=== PATIENT | female | born 1975 | race Caucasian/White ===

== ENCOUNTER 2019-06-20 10:29 | Outpatient (CLI) | payer OTHER, SELFPAY ==
--- NOTE | ~2019-06-20 | CT_ITS ---
EXAMINATION: CT abdomen pelvis w con DATE: 06/20/2019 11:24 INDICATION: Right lower quadrant abdominal pain TECHNIQUE: Computed tomography (CT) of the abdomen and pelvis was performed with 100 cc Omnipaque 350 intravenous contrast. Automated exposure control and iterative reconstruction technique were employe d. Exam dose: 1304.54 mGy-cm total exam DLP. COMPARISON: None. FINDINGS: The lung bases are clear. Hepatic steatosis. There is a very small hepatic cyst. Normal splenic size. No pancreatic mass lesion or calcification or ductal dilatation. The gallbladder is absent. No bile duct dilatation. Normal morphology of the adrenal glands. No renal mass lesion or urinary tract calculus or hydroureteronephrosis. The urinary bladder is unrem arkable. Normal caliber of the abdominal aorta. No intraperitoneal or retroperitoneal or pelvic mass lesion or adenopathy or ascites. There are some nonspecific mildly dilated loops of jejunum with scattered small bowel air-fluid level s. Normal elongated appendix. No intraperitoneal free air. Prominent bilateral osteitis condensans ilii. No suspicious osteolytic or osteoblastic lesions. IMPRESSION: Nonspecific mildly dilated jejunal loops with scattered small bowel air-fluid levels; no bowel obstruction or intraperitoneal free air Normal appendix Reviewed, dictated and finalized at [facility]. Reviewed, dictated and finalized at [facility]. [facility] IMPRESSION: Nonspecific mildly dilated jejunal loops with scattered small kaitlin l air-fluid levels; no bowel obstruction or intraperitoneal free air Normal appendix
[2019-06-20 11:36] LABS: Basophils Percent Auto 0.5 % (0.2-1.2); Eosinophils Absolute Auto 0.3 K/mm3 (0-0.3); Eosinophils Percent Auto 4.2 % (0-4.4); Hematocrit 37.4 % (37.0-47.0); Hemoglobin 12.1 g/dL (12.0-15.0); Immature Granulocyte Absolute 0.01 K/mm3 (0.00-0.031); Immature Granulocyte Percent A 0.2 % (0-0.5); Lymphocytes Absolute Auto 1.63 K/mm3 (0.9-3.2); Lymphocytes Percent Auto 24.7 % (18.3-44.2); Mean Corpuscular HGB Conc 32.4 g/dl (32-36); Mean Corpuscular Hemoglobin 32.8 pg (26-34); Mean Corpuscular Volume 101.4 fl (80-100); Mean Platelet Volume 11.3 fl (7.4-10.4); Monocytes Absolute Auto 0.5 K/mm3 (0.1-0.6); Monocytes Percent Auto 6.8 % (2.6-8.5); Neutrophils Absolute Auto 4.2 K/mm3 (1.3-6.7); Neutrophils Percent Auto 63.6 % (45.5-73.1); Platelet Count Result 189 k/mm3 (150-375); Red Blood Count 3.69 M/mm3 (4.2-5.4); White Blood Count 6.6 K/mm3 (4.5-10.0)
[2019-06-20 11:52] LABS: Alanine Aminotransferase 22 U/L (4-35); Albumin Level 3.9 g/dL (3.5-5.1); Alkaline Phosphatase 70 U/L (38-126); Aspartate Amino Transferase 26 U/L (14-36); Bilirubin,Total 0.3 mg/dL (0.2-1.3); Blood Urea Nitrogen 10 mg/dL (7-17); Calcium 8.6 mg/dL (8.4-10.2); Carbon Dioxide 24 mmol/L (22-30); Chloride 98 mmol/L (98-107); Estimated Glomerular Filt Rate > 60; Glucose 92 mg/dL (65-105); Sodium 133 mmol/L (137-145)
[2019-06-20 14:46] LABS: IFOB Positive Control Positive; Immunochemical Fecal Occult Bl Negative (N)
== END 2019-06-20 10:30 | disposition home or self-care (01) ==
PROVIDERS: PCP Physician Assistant; Visit Provider Physician Assistant
DX: R10.31 Right lower quadrant pain (principal); R19.7 Diarrhea, unspecified
CPT/HCPCS: 36415; 74177; 80053; 82274; 85025; 87015; 87045; 87046; 87177; 87209; 87269; 87272; 87324; 87427; 89055; Q9967

== ENCOUNTER 2019-07-25 10:40 | Emergency (ER) | payer OTHER, SELFPAY ==
--- NOTE | 2019-07-25 10:44 | ED.GENADULT ---
HPI - General Adult General Chief complaint: Skin/Abscess/Foreign Body Stated complaint: Pos shingles Time Seen by Provider: 07/25/19 10:44 Source: patient Mode of arrival: ambulatory Limitations: no limitations History of Present Illness HPI narrative: 44-year-old female patient presents to the [facility] with complaints of rash on the back of the neck that wraps around to the right side of the neck. Patient states that the rash started about Wednesday night into Wednesday morning. Patient states that the rash is a burning pain. Patient states she was having pain to the neck before she noticed the rash. Patient has had shingles before the past. Patient states she has not been sick recently with no fevers but states that she has been very stressed out recently. Related Data Home Medications Medication Instructions Recorded Confirmed dextroamphetamine-amphetamine PO 07/25/19 [Adderall XR] escitalopram oxalate mg 07/25/19 estradiol mg 07/25/19 Allergies Allergy/AdvReac Type Severity Reaction Status Date / Time latex Allergy Intermediate Rash Verified 10/26/18 07:17 hydrocodone AdvReac Unknown Hives / Verified 10/26/18 07:17 Red Face Penicillins AdvReac Unknown NAUSEA/VOMI Verified 10/26/18 07:17 TING onion AdvReac Nausea and Verified 07/25/19 10:57 Vomiting sulfamethoxazole AdvReac Nausea and Verified 07/25/19 10:57 [From Bactrim] Vomiting trimethoprim [From Bactrim] AdvReac Nausea and Verified 07/25/19 10:57 Vomiting Review of Systems Review of Systems: Narrative: CONSTITUTIONAL: Denies fever, chills, or sweats. EYES: Denies visual changes, redness, or discharge. ENT: Denies rhinorrhea, congestion, sore throat, or otalgia. CARDIOVASCULAR: Denies chest pain, palpitations, or edema. RESPIRATORY: Denies cough or dyspnea. GASTROINTESTINAL: Denies abdominal pain, nausea, vomiting, or diarrhea. GENITOURINARY: Denies dysuria or hematuria. SKIN: Positive painful rash to the back of the neck that extends to the right side of the neck x1 to 2 days. MUSCULOSKELETAL: Denies back pain, joint pain, or myalgia. NEUROLOGIC: Denies headache, numbness, or weakness. PSYCHIATRIC: Denies anxiety or depression. [facility] Family History Family History Father Patient's father is in good health Social History Social History Smoking status: Light tobacco smoker Alcohol intake: current Comments At the time of my signature I agree with nursing past medical history, surgical, social, and family history. There is no relevant family history pertinent to the presenting complaint. Exam Narrative: Exam Narrative: GENERAL: Well-appearing, well-nourished, and in no acute distress. HEAD: Normocephalic, atraumatic. EYES: PERRLA and EOMI. ENT: Nares clear, no rhinorrhea or epistaxis. Mucous membranes moist. NECK: Supple. No lymphadenopathy CHEST: Clear to auscultation. No respiratory distress. HEART: Regular rate and rhythm. No murmur heard. Normal peripheral pulses. ABDOMEN: Soft, nontender, nondistended, normal active bowel sounds. EXTREMITIES: Normal range of motion. No edema. SKIN: Patient does have clustered reddened areas that does appear that there was blisters that there at one time but it appears that they have popped and it does appear like she is got some peeling skin. There is an area to the posterior side of the neck as well as one area to the lateral right side of the neck. It is tender to the touch. No drainage noted at this time. NEURO: No focal deficits. Alert and oriented x3. Course Vital Signs Vital signs: Vital Signs Temperature 37.7 C H 07/25/19 10:49 Pulse Rate 73 07/25/19 10:49 Respiratory Rate 16 07/25/19 10:49 Blood Pressure 128/84 07/25/19 10:49 Pulse Oximetry 99 07/25/19 10:49 Temperature 37.7 C H 07/25/19 10:49 Pulse Rate 73 07/25/19 10:49 Respirato
[2019-07-25 10:49] VITALS: BP 128/84; PULSE 73; RESP 16; TEMP 37.7; O2SAT 99
== END 2019-07-25 11:10 | disposition home or self-care (01) ==
PROVIDERS: Emergency Provider Nurse Practitioner Family
DX: B02.7 Disseminated zoster (principal); F17.200 Nicotine dependence, unspecified, uncomplicated; F41.9 Anxiety disorder, unspecified; F32.9 Major depressive disorder, single episode, unspecified; F90.0 Attention-deficit hyperactivity disorder, predominantly inattentive type
CPT/HCPCS: 99213; G0463

== ENCOUNTER → 2019-11-13 15:01 | Outpatient (CLI) | payer OTHER, SELFPAY ==
--- NOTE | ~2019-11-13 | MM_ITS ---
EXAMINATION: MM screening brittani BI w lupe HISTORY: Screening mammogram TECHNIQUE: Craniocaudal and mediolateral oblique 3-D tomosynthesis images were obtained and synthetic 2-D images were generated. CAD analysis was submitted and interpreted. COMPARISON: Comparison to multiple prior studies sequentially, with oldest reviewed study dated 02/07. BREAST PARENCHYMAL COMPOSITION: Breast composed of scattered areas of fibroglandular density FINDINGS: There is a developing cluster of calcifications in the mid outer aspect of the left breast. The right breast is stable without evidence for malignancy. IMPRESSION: 1. Developing cluster of left breast calcifications. 2. Magnification views are recommended. BI-RADS Category 0: Incomplete: Needs additional imaging evaluation. Reviewed, dictated and finalized at [facility].
== END ==
PROVIDERS: Visit Provider Obstetrics & Gynecology
DX: Z12.31 Encounter for screening mammogram for malignant neoplasm of breast (principal); R92.8 Other abnormal and inconclusive findings on diagnostic imaging of breast
CPT/HCPCS: 77063; 77067

== ENCOUNTER → 2020-02-14 09:47 | Outpatient (CLI) | payer OTHER, SELFPAY ==
--- NOTE | ~2020-02-14 | MM_ITS ---
EXAMINATION: MM diagnostic mammo unilat LT HISTORY: Indeterminate left breast calcifications on screening mammogram TECHNIQUE: Additional views of the left breast were performed. CAD analysis was submitted and interpr eted. COMPARISON: 11/03/2019, 08/27/2015, 01/07/2010 FINDINGS: There are grouped coarse heterogeneous calcifications middle/posterior third of the outer b reast at the 4:00 location 8 cm deep to the nipple. IMPRESSION: 1. Suspicious left breast calcifications. 2. Stereotactic biopsy is recommended. BI-RADS category 4, suspicious findings. Reviewed, dictated and finalized at [facility].
== END ==
PROVIDERS: Visit Provider Obstetrics & Gynecology
DX: R92.8 Other abnormal and inconclusive findings on diagnostic imaging of breast (principal)
CPT/HCPCS: 77065

== ENCOUNTER 2022-08-10 11:35 | Emergency (ER) | payer OTHER, SELFPAY ==
--- NOTE | ~2022-08-10 | CT_ITS ---
EXAMINATION: CT abdomen pelvis w con DATE: 08/10/2022 12:59 INDICATION: Right lower quadrant abdominal pain TECHNIQUE: Computed tomography (CT) of the abdomen and pelvis was performed with 100 CC Omnipaque 350 intravenous contrast. Automated exposure control and iterative reconstruction technique were employe d. Exam dose: 783.47 mGy-cm total exam DLP. COMPARISON: June 20, 2019 CT abdomen pelvis FINDINGS: The lung bases are clear of infiltrate or consolidation. Normal heart size. No pericardial or pleural effusion. Stable very small right hepatic cyst since June 20, 2019. The gallbladder is absent. No bile duct or pancreatic duct dilatation. No pancreatic mass lesion or calcification. Normal splenic size. Normal morphology of the adrenal glands. No renal mass lesion or urinary tract calculus or hydroureteronephrosis. Normal caliber of the abdominal aorta. No intraperitoneal or retroperitoneal or pelvic mass lesion or adenopathy or ascites. The urinary bladder is unremarkable. Normal appendix. No bowel obstruction or intraperitoneal free air. Very small fat-containing umbilical hernia. Bilateral osteitis condensans ilii. No suspicious osteolytic or osteoblastic lesions. IMPRESSION: Normal appendix Reviewed, dictated and finalized at [facility]. Reviewed, dictated and finalized at [facility]. IMPRESSION: Normal appendix
[2022-08-10 11:50] VITALS: BP 114/70; PULSE 68; RESP 20; TEMP 37; O2SAT 97
[2022-08-10 12:05] LABS: Basophils Absolute Auto 0.1 K/mm3 (0.0-0.1); Basophils Percent Auto 0.8 % (0.2-1.2); Eosinophils Absolute Auto 0.2 K/mm3 (0-0.3); Eosinophils Percent Auto 3.6 % (0-4.4); Hematocrit 40.8 % (37.0-47.0); Hemoglobin 13.5 g/dL (12.0-15.0); Immature Granulocyte Absolute 0.01 K/mm3 (0.00-0.031); Immature Granulocyte Percent A 0.2 % (0-0.5); Lymphocytes Absolute Auto 1.55 K/mm3 (0.9-3.2); Lymphocytes Percent Auto 25.2 % (18.3-44.2); Mean Corpuscular HGB Conc 33.1 g/dl (32-36); Mean Corpuscular Hemoglobin 33.4 pg (26-34); Mean Platelet Volume 11.3 fl (7.4-10.4); Monocytes Absolute Auto 0.4 K/mm3 (0.1-0.6); Monocytes Percent Auto 6.3 % (2.6-8.5); Neutrophils Absolute Auto 3.9 K/mm3 (1.3-6.7); Neutrophils Percent Auto 63.9 % (45.5-73.1); Platelet Count Result 191 k/mm3 (150-375); Red Blood Count 4.04 M/mm3 (4.2-5.4); White Blood Count 6.2 K/mm3 (4.5-10.0)
[2022-08-10 12:13] LABS: Appearance Urine Clear (Clear); Bilirubin Urine Negative (Negative); Blood Urine Negative (Negative); Color Urine Yellow (Yellow); Glucose Urine UA Negative (Negative); Ketones Urine Trace mg/dL (Negative); Leukocyte Esterase Ur Negative LEU/UL (Negative); Nitrate Urine Negative (Negative); Protein Urine Negative (Negative); Specific Grav Ur 1.023 (1.001-1.035); Urobilinogen Urine 0.2 mg/dL (<2.0)
[2022-08-10 12:15] LABS: Add Urine Microscopic? NO
[2022-08-10 12:16] LABS: Alanine Aminotransferase 22 U/L (6-35); Albumin Level 4.3 g/dL (3.5-5.1); Alkaline Phosphatase 55 U/L (38-126); Anion Gap 6 mmol/L (8-16); Aspartate Amino Transferase 25 U/L (14-36); Bilirubin,Total 0.5 mg/dL (0.2-1.3); Blood Urea Nitrogen 8 mg/dL (7-17); Calcium 8.8 mg/dL (8.4-10.2); Carbon Dioxide 27 mmol/L (22-30); Chloride 107 mmol/L (98-107); Estimated CRCL calculation 119 ml/min; Estimated Glomerular Filt Rate > 60; Glucose 99 mg/dL (65-110); Lipase 72 U/L (23-300); Potassium 4.2 mmol/L (3.4-5.0); Sodium 140 mmol/L (137-145)
--- NOTE | 2022-08-10 12:46 | ED.GENADULT ---
HPI - General Adult General Chief complaint: Abdominal Pain Stated complaint: Abdominal pain Time Seen by Provider: 08/10/22 12:23 Source: RN notes reviewed History of Present Illness HPI narrative: Patient presents emergency department from home for abdominal pain. Patient states symptoms began 3 days ago. Pain is located in the right side of the abdomen and radiates around to the right side of the back. Patient states the pain is described as sharp and stabbing in nature. States that nothing makes the pain better or worse. States she has not taking thing for the pain today. She denies any fevers or chills she denies any nausea vomiting or diarrhea. States that she has had a previous cholecystectomy Related Data Home Medications Medication Instructions Recorded Confirmed dextroamphetamine-amphetamine ER PO 07/25/19 10 mg 24hr capsule,extend release (Adderall XR) escitalopram oxalate 20 mg tablet mg 07/25/19 estradiol 1 mg tablet mg 07/25/19 Allergies Allergy/AdvReac Type Severity Reaction Status Date / Time latex Allergy Intermediate Rash Verified 10/26/18 07:17 hydrocodone AdvReac Unknown Hives / Verified 10/26/18 07:17 Red Face Penicillins AdvReac Unknown NAUSEA/VOMI Verified 10/26/18 07:17 TING onion AdvReac Nausea and Verified 07/25/19 10:57 Vomiting sulfamethoxazole AdvReac Nausea and Verified 07/25/19 10:57 [From Bactrim] Vomiting trimethoprim [From Bactrim] AdvReac Nausea and Verified 07/25/19 10:57 Vomiting Review of Systems Review of Systems: Gen.: Denies fevers or chills ENT: Denies congestion Respiratory: Denies shortness of breath or cough CV: Denies chest pain or palpitations GI: See HPI denies burning, urgency, frequency or hematuria Musculoskeletal: Denies back pain or muscle pain Neuro: Denies numbness, tingling, weakness or focal weakness Skin: Denies rash Except as documented, all other systems reviewed and negative [facility] Past Medical History Medical History (Updated 08/10/22 @ 14:06 by Massimo Rebolledo DO) Hypercholesterolemia Family History Family History Father Patient's father is in good health Social History Social History (Reviewed 08/10/22 @ 12:48 by FRANK Evans Smoking status: Light tobacco smoker Alcohol intake: current Exam Narrative: APPEARANCE: No acute distress, nontoxic, resting in bed HEENT: Normocephalic, atraumatic, OMM RESPIRATORY: No respiratory distress, clear to auscultation bilaterally with no rhonchi wheezing or rales CARDIOVASCULAR: RRR s murmur ABDOMINAL: Soft nondistended tender to palpation the right upper quadrant in the right lower quadrant no tenderness in the left upper quadrant and left lower quadrant no rebound or guarding MUSCULOSKELETAl: Moves all extremities. No clubbing, cyanosis or edema. NEURO: Awake and alert. Following commands, speech normal, no focal deficits SKIN:: Warm, dry. Normal Color PSYCHIATRIC: Normal affect/mood Course Course Emergency Course: Patient states that they are feeling much better at this time. States abdominal pain has improved with no surgical abdomen present. Discussed with patient results of workup and diagnosis. Discussed need for follow-up with primary care physician, reasons to return to the emergency department in proper use of medication. Patient understands and agrees to current treatment plan Vital Signs Vital signs: Vital Signs Temperature 98.6 F 08/10/22 11:50 Pulse Rate 68 08/10/22 11:50 Respiratory Rate 20 08/10/22 11:50 Blood Pressure 114/70 08/10/22 11:50 Pulse Oximetry 97 08/10/22 11:50 Oxygen Delivery Room Air 08/10/22 11:50 Temperature 98.6 F 08/10/22 11:50 Pulse Rate 60 08/10/22 13:40 Respiratory Rate 14 08/10/22 13:40 Blood Pressure 126/77 08/10/22 13:40 Pulse Oximetry 96 08/10/22 13:40 Oxygen Delivery Room Air 08/10/22 11:50
[2022-08-10] MEDS: SODIUM CHLORIDE 0.9% IV 1,000 ML 999 ML IV CONT (13:39)
[2022-08-10 13:40] VITALS: BP 126/77; PULSE 60; RESP 14; O2SAT 96
[2022-08-10] MEDS: FAMOTIDINE 20 MG/2 ML VIAL IV PUSH (13:40)
[2022-08-10] MEDS: KETOROLAC 30 MG/ML VIAL (*BKC) IV PUSH (13:40)
== END 2022-08-10 14:14 | disposition home or self-care (01) ==
PROVIDERS: Emergency Medicine; Emergency Provider Emergency Medicine
DX: R10.9 Unspecified abdominal pain (principal); E78.00 Pure hypercholesterolemia, unspecified; F17.200 Nicotine dependence, unspecified, uncomplicated
CPT/HCPCS: 36415; 74177; 80053; 81003; 81025; 83690; 85025; 96361; 96374; 96375; 99284; J1885; J7030; Q9967